=== PATIENT | female | born 1940 | race Native Hawaiian/Other Pacific Islander ===

== ENCOUNTER 2017-02-25 09:03 | Outpatient (CLI) | payer OTHER, MEDICARE ==
[~2017-02-25 09:03] MED LIST: BENZ100C8 PO; CETI10TA PO; LEVAQUIN500 MG OR; LEVO0.0218 PO; MONT10TA PO; PROAIR HFA IN; ROSU10TA PO; SEROQUEL100 MG OR
== END 2017-02-25 19:26 | disposition home or self-care (01) ==
LOC: RAD 09:03
DX: J44.9 Chronic obstructive pulmonary disease, unspecified (principal)

== ENCOUNTER 2017-05-22 15:50 | Outpatient (CLI) | payer OTHER, MEDICARE | END 2017-05-22 20:09 | disposition home or self-care (01) | LOC: RAD 15:50 | DX: M17.11 Unilateral primary osteoarthritis, right knee (principal) ==

== ENCOUNTER 2017-07-17 14:01 | Outpatient (CLI) | payer OTHER, MEDICARE | END 2017-07-17 19:11 | disposition home or self-care (01) | LOC: RAD 14:01 | DX: R06.02 Shortness of breath (principal) ==

== ENCOUNTER 2018-03-22 10:41 | Outpatient (CLI) | payer OTHER, MEDICARE | END 2018-03-22 19:49 | disposition home or self-care (01) | LOC: RAD 10:41 | DX: R06.02 Shortness of breath (principal) ==

== ENCOUNTER 2019-02-04 14:08 | Outpatient (CLI) | payer OTHER, MEDICARE | END 2019-02-04 22:42 | disposition home or self-care (01) | LOC: RAD 14:08 | DX: J43.2 Centrilobular emphysema (principal) ==

== ENCOUNTER 2019-10-17 09:58 | Outpatient (CLI) | payer OTHER, MEDICARE | END 2019-10-17 22:33 | disposition home or self-care (01) | LOC: MAMMO 09:58 | DX: Z12.31 Encounter for screening mammogram for malignant neoplasm of breast (principal) ==

== ENCOUNTER 2021-05-20 11:27 | Outpatient (CLI) | payer OTHER, MEDICARE | END 2021-05-20 21:45 | disposition home or self-care (01) | LOC: RAD 11:27 | PROVIDERS: ATTEND Physician Assistant | DX: M25.531 Pain in right wrist (principal) ==

== ENCOUNTER 2021-06-24 09:32 | Outpatient (CLI) | payer OTHER, MEDICARE | END 2021-06-24 22:15 | disposition home or self-care (01) | LOC: RAD 09:32 | PROVIDERS: ATTEND Physician Assistant | DX: M25.531 Pain in right wrist (principal) ==